=== PATIENT | male | born 1945 | race Caucasian/White ===

== ENCOUNTER 2020-08-10 18:33 | Outpatient (REF) | payer OTHER, SELFPAY ==
[2020-08-10 19:18] LABS: HCT 46.6 % (40.0-50.0); MCH 29.1 pg (27.0-33.0); MCHC 32.2 % (32.0-36.0); MCV 90.5 fL (80-95); MPV 11.2 fL (8.0-11.0); Platelet Count 245 10^3/uL (130-400); RBC 5.15 10^6/uL (4.36-5.78); RDW 12.9 % (11.8-14.1); RDW-SD 42.4 fL; WBC 8.23 10^3/uL (4.4-10.8)
[2020-08-10 20:01] LABS: Anion Gap 11.7 mmol/L (3-11); BUN 18 mg/dL (7-18); CO2 25.3 mmol/L (21.0-32.0); CREATININE 1.11 mg/dL (0.70-1.30); Calcium 8.6 mg/dL (8.5-10.1); Calculated LDL 124 mg/dL (<100); Chloride 104 mmol/L (98-107); Cholesterol 194 mg/dL (<200); Glucose 85 mg/dL (74-106); HDL Cholesterol 55 mg/dL (40-60); Potassium 4.2 mmol/L (3.5-5.1); Sodium 141 mmol/L (136-145); Triglyceride 77 mg/dL (<150)
[2020-08-11 18:36] LABS: PSA, Screening 8.2 ng/mL (0.0-6.5)
== END 2020-08-10 18:53 ==
LOC: NCHCN 18:33
PROVIDERS: PCP Physician Assistant; Visit Provider Physician Assistant
DX: Z00.00 Encounter for general adult medical examination without abnormal findings (principal); Z13.220 Encounter for screening for lipoid disorders; Z13.228 Encounter for screening for other metabolic disorders; Z12.5 Encounter for screening for malignant neoplasm of prostate
CPT/HCPCS: 80048; 80061; 84153; 85027

== ENCOUNTER 2020-08-28 02:28 | Outpatient (CLI) | payer OTHER, SELFPAY ==
[2020-08-30 11:30] LABS: SARS-CoV-2 RNA Not Detected (NotDetected); SARS-CoV-2 RNA Source Nasal/Nares
== END 2020-08-28 02:48 ==
PROVIDERS: PCP Physician Assistant; Visit Provider Surgery
DX: Z11.59 Encounter for screening for other viral diseases (principal); Z01.818 Encounter for other preprocedural examination
CPT/HCPCS: U0003

== ENCOUNTER 2020-09-01 07:44 | Day surgery (SDC) | payer OTHER, SELFPAY ==
[2020-09-01] VITALS (7 sets, daily range): BP systolic 123–142; BP diastolic 66–93; PULSE 44–57; RESP 12–20; TEMP 36.5–37.1; O2SAT 97–100
[2020-09-01] MEDS: Lactated Ringers 1,000 ML 80 ML IV (08:35)
[2020-09-01] MEDS: ceFAZolin 2 GM/50 ML BAG IVPB (11:12)
[2020-09-01] MEDS: Bupivacaine LIPOSOME/PF 133 MG/10 ML VIAL IJ (11:30)
[2020-09-01] MEDS: Bupivacaine 0.25% Pres-Free 10 ML VIAL (11:30)
--- NOTE | 2020-09-01 11:33 | PDOC.DSDIS_ITS ---
Discharge Plan Disposition Patient Disposition: HOME Condition: Good Discharge Details Reason For Visit: Right inguinal hernia repair Attending Provider: Jessica Angel Primary Care Provider: Randal Nuñez Home Meds and New Rx's Prescriptions: No Action No Known Home Meds RF: 0 Discharge Instructions Additional Instructions: The top bandage can be removed tomorrow. The steri strips will usually stick for about a week. When the edges start to curl up, they can be removed. It is okay to shower tomorrow, the water can run over the steri strips Do not swim or soak in a tub for two weeks Call for any concerns including fever, increased pain, vomiting, incision redness or drainage. Do not lift more than 15 pounds for four weeks. Walking and stairs are fine. Do not drive if on narcotic pain meds or if limited by pain. May use Tylenol alternating with ibuprofen for pain control. Ice is also an option. The maximum dose for Tylenol is 4000 mg/day. May use ibuprofen 800 mg every 8 hours as needed. If concerned about constipation, you may use a stool softener or milk of magnesia. Referrals: Jessica Angel MD [ [facility]FF [facility]YSICIAN] - (Return in 10-14 days for a postop check) Activity:: Do not lift more than 15 pounds Remove Dressings/Wound Care:: 24 hours Shower/Bathe:: 24 hours Diet:: As Tolerated Discharge Orders Discharge Orders: Discharge Order (Routine); Ordered 09/01/20 Ordered By: Jessica Angel DS: Diagnosis Discharge Diagnosis (1) Right inguinal hernia: Status: Acute
--- NOTE | 2020-09-01 11:34 | ROE_ITS ---
Date of service: 09/01/20 Time of Service: 12:59 Operative Note Operative Note DATE OF PROCEDURE: 09/01/20 PRE-OP DIAGNOSIS: Right inguinal hernia PROCEDURE: Right inguinal hernia repair with mesh SURGEON: Jessica Angel ASSEMBLER DIELECTRIC HEATER: Mary Alice Morgan ANESTHESIA: GETA, regional and local Indications: This 74 year old man presents with a reducible right inguinal hernia. Procedure Description: The patient was placed supine on the operating table. After induction of general anesthesia and placement of a right TAP block, his right groin was prepped and draped sterilely. The ASIS and pubic tubercle were identified and a transverse incision marked between the 2 locations. Local anesthetic was infiltrated and the Ioban placed. Incision was made with knife and subcutaneous tissue divided with cautery down to the external oblique fascia. Any bridging veins that were encountered were clamped, divided and ligated with 3-0 Vicryl ties. A small incision was made in the fascia and extended bluntly through the external inguinal ring. The spermatic cord was dissected free at the level of the pubic tubercle and encircled with a Cardwell drain. There was no evidence of a direct hernia defect. Dissection within the cord revealed a small cord lipoma. This was dissected free up to the internal ring and reduced. There is also a moderate sized hernia sac that did not have any contents. This was dissected free of the cord structures and reduced. A small mesh plug was sutured into the internal ring with interrupted 2-0 Prolene sutures. A flat sheet of mesh was sutured to the floor of the inguinal canal in standard Mihir fashion. The cord was inspected and was not compressed by the mesh. There was good hemostasis. The external oblique fascia was closed with a running 3-0 Vicryl stitch and Aryan's fascia closed with interrupted 3-0 Vicryl sutures. The skin was then closed with a running 4 Monocryl subcuticular stitch. He tolerated the procedure well and was stable to recovery.
== END 2020-09-01 15:15 | disposition home or self-care (01) ==
PROVIDERS: PCP Physician Assistant; Visit Provider Surgery
PROC: (CPT 49505; principal; 2020-09-01 09:30)
DX: K40.90 Unilateral inguinal hernia, without obstruction or gangrene, not specified as recurrent (principal); G89.18 Other acute postprocedural pain; D17.6 Benign lipomatous neoplasm of spermatic cord; I10 Essential (primary) hypertension
CPT/HCPCS: 49505; 76942; C1781; J0690; J1100; J2405